=== PATIENT | female | born 1990 | race Caucasian/White ===

== ENCOUNTER 2017-06-10 13:08 | Emergency (ER) | payer SELFPAY ==
[2017-06-10 13:16] VITALS: RESP 18; BMI 26.4
[2017-06-10] MEDS ORDERED: Sodium Chloride 0.9% 1,000 ML IV ONE (13:45)
[2017-06-10] MEDS ORDERED: Morphine 4 MG/ML VIAL IV ONE (13:45)
[2017-06-10] MEDS ORDERED: Morphine 4 MG/ML VIAL ONE (14:00)
[2017-06-10] MEDS ORDERED: Sodium Chloride 0.9% 1,000 ML ONE (14:01)
[2017-06-10 14:10] LABS: BASO % 0.3 % (0.0-2.0); EOS % 0.3 % (0.0-4.0); HEMATOCRIT 41.4 % (34.0-47.0); LYMPH # 1.8 K/uL (1.0-4.3); LYMPH % 17.5 % (20.0-40.0); MEAN CORPUSCULAR HEMOGLOBIN 30.4 pg (27.0-31.0); MEAN CORPUSCULAR HGB CONC 34.2 g/dL (33.0-37.0); MEAN PLATELET VOLUME 8.6 fL (7.2-11.7); MONO # 0.5 K/uL (0.0-0.8); MONO % 5.3 % (0.0-10.0); RED CELL DISTRIBUTION WIDTH 13.3 % (11.5-14.5)
[2017-06-10 14:21] LABS: ALB/GLOB RATIO 1.3 (1.0-2.1); ALKALINE PHOSPHATASE 99 U/L (38-126); ALT/SGPT 29 U/L (9-52); AST/SGOT 23 U/L (14-36); BILIRUBIN,TOTAL 0.6 mg/dL (0.2-1.3); BLOOD UREA NITROGEN 10 mg/dL (7-17); CALCIUM 9.9 mg/dl (8.6-10.4); CARBON DIOXIDE 22 mmol/L (22-30); CHLORIDE 103 mmol/L (98-107); GFR AFRICAN-AMERICAN > 60; GLUCOSE,RANDOM 91 mg/dL (65-105); POTASSIUM 3.6 mmol/L (3.6-5.2); SODIUM 142 mmol/L (132-148); TOTAL PROTEIN 7.9 g/dL (6.3-8.3)
[2017-06-10 14:22] LABS: RBC URINE 205 /hpf (0-3); URINE BACTERIA RARE (<OCC); URINE BILIRUBIN NEGATIVE (NEGATIVE); URINE BLOOD 3+ (NEGATIVE); URINE COLOR Yellow (YELLOW); URINE GLUCOSE (UA) NORMAL (Normal); URINE KETONE TRACE mg/dL (NEGATIVE); URINE LEUKOCYTE ESTERASE 2+ Leu/uL (Negative); URINE PROTEIN 2+ mg/dL (NEGATIVE); URINE UROBILINOGEN NORMAL mg/dL (0.2-1.0); WBC URINE 95 /hpf (0-5)
--- NOTE | 2017-06-10 15:21 | C.PDOC ---
History Of Present Illness 26 year old female presents to the ED requesting elective D & C. She complains of vaginal spotting and lower pelvic cramping. Patient was seen at [facility] three days ago and diagnosed with demise. She is 4, para 2, M 1. Time Seen by Provider: 06/10/17 13:45 Chief Complaint (Nursing): Abdominal Pain History Per: Patient History/Exam Limitations: no limitations Onset/Duration Of Symptoms: Days (3 days ) Current Symptoms Are (Timing): Still Present Radiation Of Pain To:: None Quality Of Discomfort: Cramping Associated Symptoms: denies: Fever, Chills, Nausea, Vomiting, Diarrhea Recent travel outside of the [place]: No Additional History Per: Prior Records (seen at [facility] 3 days ago) Abnormal Vaginal Bleeding: Yes : 4 Para: 2 Miscarriage: 1 Past Medical History Reviewed: Historical Data, Nursing Documentation, Vital Signs Vital Signs: Last Vital Signs Temp 98.2 F 06/10/17 16:54 Pulse 80 06/10/17 16:54 Resp 18 06/10/17 16:54 BP 132/82 06/10/17 16:54 Pulse Ox 98 06/10/17 18:08 Family History: States: Unknown Family Hx - Social History Hx Alcohol Use: No Hx Substance Use: No - Immunization History Hx Tetanus Toxoid Vaccination: No Hx Influenza Vaccination: No Hx Pneumococcal Vaccination: No Review Of Systems Constitutional: Negative for: Fever, Chills Cardiovascular: Negative for: Chest Pain Respiratory: Negative for: Shortness of Breath Gastrointestinal: Negative for: Nausea, Vomiting Genitourinary: Positive for: Vaginal Bleeding (vaginal spotting ), Pelvic Pain ( lower pelvic cramping ). Negative for: Dysuria, Hematuria Physical Exam - Physical Exam Appears: Non-toxic, No Acute Distress Skin: Warm, Dry Head: Atraumatic Eye(s): bilateral: Normal Inspection Oral Mucosa: Moist Neck: Supple Chest: Symmetrical, No Deformity Cardiovascular: Rhythm Regular, No Murmur Respiratory: Normal Breath Sounds, No Rales, No Rhonchi, No Wheezing Gastrointestinal/Abdominal: Soft, Tenderness (mild supra), No Distention, No Guarding, No Rebound Pelvic: Other (Exam deferred ) ED Course And Treatment - Laboratory Results Result Diagrams: 06/10/17 14:03 06/10/17 14:03 Lab Interpretation: Normal (ua with blood from vag, A+, Quant HCG 6400 very low for dates) O2 Sat by Pulse Oximetry: 98 (room air ) Progress Note: Patient was given Morphine, Zofran, and IV fluids. Reevaluation Time: 16:04 Reassessment Condition: Improved - Physician Consult Information Time Consulting Physician Contacted: 15:15 Physician Contacted: Rach Cooper Outcome Of Conversation: Case was discussed with OB front office specialist, Dr. Jovanna Cooper. Patient does not meet the criteria for D & C. Medical Decision Making Medical Decision Making: demise as prior eval 2-3 days ago @ [facility] d/w Dr. Isidro Cooper- [employer] Administrative Office Assistant- ok to d/c home with Motrin/Tramadol PRN NO criteria for D&C at this time. Disposition Doctor Will See Patient In The: Office Counseled Patient/Family Regarding: Studies Performed, Diagnosis - Disposition [facility] Rach Cooper MD [Staff Provider] - Disposition: HOME/ ROUTINE Disposition Time: 16:05 Condition: GOOD Additional Instructions: continue Motrin/Advil/Ibuprofen 600 mg every 6 hours as needed for pelvic pain Tramadol 50 mg (narcotic pain reliever) for more severe pain- one tab every 4-6 hours Follow-up in our outpatient OBGYN Clinic in 1-2 weeks as needed There is NO indication for Dilation and Curretage at this time (D&C). today's Ultrasound results given Prescriptions: traMADol [Ultram] 50 mg PO Q6H PRN #20 tab PRN Reason: pain Instructions: Spontaneous Miscarriage (ED), Threatened Miscarriage (ED) Forms: [employer] (Slovenian) - Clinical Impression Clinical Impression: demise - Scribe Statement The provider has reviewed the documentation as recorded by the Scribe Iza Prado All medical record entries made by the Scribe were at my direction and personally dictated by me. I have reviewed the chart and agree that the record accurately reflects my personal performance of the history, physical exam, medical decision making, and the department course for this patient. I have also personally directed, reviewed, and agree with the discharge instructions and disposition.
--- NOTE | 2017-06-10 15:38 | US ---
PROCEDURE: OB Pelvic Ultrasound HISTORY: missed AB COMPARISON: None available. FINDINGS: UTERUS: Gestational sac: Adjacent small sac is identified within the endometrial cavity but no pole yolk sac is identified at this time. Heart rate: Not applicable bpm. age (Ultrasound estimated): Based on a mean sac diameter 3.6 cm, PE late is estimated 8 weeks 6 days which agrees with LMP derived gestational age of 7 weeks 2 days based on last menstrual period of 04/13/2017. Anahy-gestational hemorrhage: None definitively shown. Date of delivery (Ultrasound estimated) : Not applicable Uterus measures 11.6 x 5.4 x 6.7 cm. Normal in size and appearance. CERVIX: Long and closed. No cervical abnormality seen. RIGHT OVARY: Measures 4.1 x 1.9 x 2.8 cm. No mass lesion. Normal flow. LEFT OVARY: Measures 3.4 x 2.4 x 3.1 cm. No solid mass. Normal flow. FREE FLUID: None. OTHER FINDINGS: None. IMPRESSION: A gestational sac is identified within the endometrial cavity without pole or yolk sac, with a mean sac diameter suggested 8 weeks 6 days gestation. The pattern suggests failure of gestation. A single gestational sac with ectopic gestation is a possibility but is not favored. No ectopic is identified at either adnexal compartment or the cul-de-sac. Further clinical correlation is advised. Consider follow-up pelvic ultrasonography as well.
[2017-06-10 16:54] VITALS: BP 132/82; PULSE 80; TEMP 98.2
[2017-06-10 18:07] VITALS: O2SAT 98
== END 2017-06-10 16:54 | disposition home or self-care (01) ==
LOC: C.ER 13:08
DX: O02.1 Missed abortion (principal)
CPT/HCPCS: 76805; 76817; 80053; 81001; 84702; 84703; 85025; 86850; 86900; 96361; 96374; 96375; 99285; J2270; J2405; J7040

== ENCOUNTER 2017-06-30 13:06 | Day surgery (SDC) | payer OTHER ==
[2017-06-30 13:07] VITALS: BMI 26.4
--- NOTE | 2017-06-30 13:45 | C.PDOC ---
History Of Present Illness Patient is a 26 y/o F presenting with vaginal discharge. Patient presented to to ED on 06/10/17 requesting elective D&C after was diagnosed with demise at outside hospital. She had ultrasound at that time consistent with demise and was instructed to follow-up with OB as outpatient. Patient reports that she did not follow-up. She reports that she now was vaginal discharge with foul odor. Time Seen by Provider: 06/30/17 13:24 Chief Complaint (Nursing): Abdominal Pain Past Medical History Vital Signs: Last Vital Signs Temp 97.9 F 06/30/17 13:31 Pulse 100 H 06/30/17 13:31 Resp 18 06/30/17 13:31 BP 109/75 06/30/17 13:31 Pulse Ox 96 06/30/17 16:01 Family History: States: Unknown Family Hx - Social History Hx Alcohol Use: No Hx Substance Use: No - Immunization History Hx Tetanus Toxoid Vaccination: No Hx Influenza Vaccination: No Hx Pneumococcal Vaccination: No Review Of Systems Constitutional: Negative for: Fever Cardiovascular: Negative for: Chest Pain, Palpitations, Edema, Light Headedness Respiratory: Negative for: Cough, Shortness of Breath, SOB with Excertion, Wheezing Gastrointestinal: Negative for: Nausea, Vomiting, Abdominal Pain, Diarrhea, Constipation Genitourinary: Positive for: Vaginal Discharge, Vaginal Bleeding. Negative for : Dysuria, Frequency Musculoskeletal: Negative for: Neck Pain Neurological: Negative for: Weakness, Numbness Physical Exam - Physical Exam Appears: Well, Non-toxic, No Acute Distress Skin: Normal Color, Warm, Dry Head: Atraumatic, Normacephalic Eye(s): bilateral: Normal Inspection, PERRL, EOMI Neck: Supple Cardiovascular: Rhythm Regular Respiratory: Normal Breath Sounds, No Rales, No Rhonchi Gastrointestinal/Abdominal: Soft, No Tenderness, No Mass Back: Normal Inspection, No CVA Tenderness Pelvic: No Cervical Motion Tenderness, No Cervix Open, No Adnexal Tenderness, Other (external os closed. Blood in vault. +odor) Extremity: Normal ROM Neurological/Psych: Oriented x3 ED Course And Treatment - Laboratory Results Result Diagrams: 06/30/17 14:12 06/30/17 14:12 O2 Sat by Pulse Oximetry: 96 Medical Decision Making Medical Decision Making: Will get ultrasound labs and reeval U/s shows No viable intrauterine gestation is identified and there is no defined gestational sac in the interval either at this time. A thickened endometrial is hyperemic and measures up to 16.8 mm suspicious for retained products of conception. Infection is also not excluded. There likely hemorrhagic products in the endocervical canal versus additional potential retained products of conception. Clinical correlation is further advised. No suspicious adnexal findings bilaterally. Labs reviewed and blood type A+. BHC. Elevated wbc. Spoke to Dr. Ruelas who will evaluate 5:03PM Ob evaluated and bedside and consented patient for D&C in OR tonight. Disposition - Disposition Disposition: HOSPITALIZED Disposition Time: 17:03 Condition: FAIR Forms: [facility] (Maori) - Clinical Impression Clinical Impression: Retained products of conception, Incomplete
[2017-06-30] MEDS ORDERED: Sodium Chloride 0.9% 1,000 ML IV ONE ×3 (13:57→18:43)
[2017-06-30] MEDS ORDERED: Sodium Chloride 0.9% 1,000 ML ONE ×3 (14:02→17:39)
[2017-06-30 14:19] LABS: BASO # 0.1 K/uL (0.0-0.2); BASO % 0.5 % (0.0-2.0); EOS # 0.1 K/uL (0.0-0.7); EOS % 0.3 % (0.0-4.0); HEMATOCRIT 45.6 % (34.0-47.0); LYMPH # 1.7 K/uL (1.0-4.3); LYMPH % 11.3 % (20.0-40.0); MEAN CELL VOLUME 90.4 fL (81.0-99.0); MEAN CORPUSCULAR HEMOGLOBIN 30.3 pg (27.0-31.0); MEAN CORPUSCULAR HGB CONC 33.5 g/dL (33.0-37.0); MEAN PLATELET VOLUME 9.3 fL (7.2-11.7); MONO # 0.6 K/uL (0.0-0.8); MONO % 3.8 % (0.0-10.0); RED CELL DISTRIBUTION WIDTH 13.3 % (11.5-14.5); WHITE BLOOD COUNT 15.4 K/uL (4.8-10.8)
[2017-06-30 14:30] LABS: CHLORIDE 101 mmol/L (98-107); SODIUM 143 mmol/L (132-148)
[2017-06-30 14:32] LABS: AST/SGOT 27 U/L (14-36); BILIRUBIN,TOTAL 0.7 mg/dL (0.2-1.3); CARBON DIOXIDE 23 mmol/L (22-30); GFR AFRICAN-AMERICAN > 60
[2017-06-30 14:33] LABS: ALB/GLOB RATIO 1.3 (1.0-2.1); ALKALINE PHOSPHATASE 81 U/L (38-126); ALT/SGPT 23 U/L (9-52); BLOOD UREA NITROGEN 14 mg/dL (7-17); GLUCOSE,RANDOM 105 mg/dL (65-105); TOTAL PROTEIN 8.3 g/dL (6.3-8.3)
--- NOTE | 2017-06-30 15:46 | US ---
HISTORY: , vaginal bleeding COMPARISON: As below. TECHNIQUE: Transvaginal ultrasound of pelvis performed for evaluation of spontaneous vaginal bleeding in this patient. Comparison is made to the prior transvaginal pelvic ultrasound examination 06/10/2017. FINDINGS: UTERUS: Measures 9.7 x 4.6 x 5.8 cm. Prior gestational sac is now not identified with fluid and debris probably reflecting hemorrhage in various stages area of degradation within the upper mid and lower endocervical canal. No myometrial lesion is identified. ENDOMETRIUM: Measures 16.8 mm in diameter. The endometrium is inhomogeneous in overall echotexture and appears mildly hyperemic on color Doppler imaging. This pattern is suspicious for retained products of conception given the thickness of the endometrium. CERVIX: Included in uterus section above. RIGHT OVARY: Measures 2.7 x 1.7 x 2.8 cm. No solid mass. Normal flow. LEFT OVARY: Measures 2.1 x 1.8 x 2.1 cm. No solid mass. Normal flow. FREE FLUID: No significant free fluid noted. OTHER FINDINGS: None. IMPRESSION: No viable intrauterine gestation is identified and there is no defined gestational sac in the interval either at this time. A thickened endometrial is hyperemic and measures up to 16.8 mm suspicious for retained products of conception. Infection is also not excluded. There likely hemorrhagic products in the endocervical canal versus additional potential retained products of conception. Clinical correlation is further advised. No suspicious adnexal findings bilaterally.
--- NOTE | 2017-06-30 16:23 | CP.PCM.HP ---
History of Present Illness - History of Present Illness History of Present Illness: 26 yr lmp 03/18/17 her for c/o vaginal bleeding on/off with cramping for 2 months. pt states sh had fever few days ced .no fever today.last vit to er 06/10. obhx 1 c/s, 1 x pmh denies med pnv all nkda psh denies soch denies abd soft,non tender ext no edema,no calf ten sse closed, ut anteverted no adenxal mass sono retained products . end 1.6 cm Present on Admission - Present on Admission Any Indicators Present on Admission: No History of DVT/PE: No History of Uncontrolled Diabetes: No Urinary Catheter: No Decubitus Ulcer Present: No Review of Systems - Menstruation Menstruation: Abnormal Vaginal Bleeding Past Patient History - Infectious Disease Hx of Infectious Diseases: None - Past Social History Smoking Status: Never Smoked - PSYCHIATRIC Hx Substance Use: No - SURGICAL HISTORY Hx Surgeries: Yes Hx Section: Yes (x2) - ANESTHESIA Hx Anesthesia: Yes Hx Anesthesia Reactions: No Meds Allergies/Adverse Reactions: Allergies Allergy/AdvReac Type Severity Reaction Status Date / Time No Known Allergies Allergy Verified 06/30/17 13:33 Physical Exam - Exam External exam: NORMAL EXTERNAL EXAM Speculum exam: Vaginal Bleeding Bimanual exam: NORMAL BIMANUAL EXAM Results - Vital Signs Recent Vital Signs: Last Vital Signs Temp 97.9 F 06/30/17 13:31 Pulse 100 H 06/30/17 13:31 Resp 18 06/30/17 13:31 BP 109/75 06/30/17 13:31 Pulse Ox 96 06/30/17 16:01 - Labs Result Diagrams: 06/30/17 14:12 06/30/17 14:12 Labs: Laboratory Results - last 24 hr 06/30/17 06/30/17 06/30/17 14:12 14:12 14:12 WBC 15.4 H D RBC 5.04 Hgb 15.3 Hct 45.6 MCV 90.4 MCH 30.3 MCHC 33.5 RDW 13.3 Plt Count 244 MPV 9.3 Neut % (Auto) 84.1 H Lymph % (Auto) 11.3 L [place] % (Auto) 3.8 Eos % (Auto) 0.3 Baso % (Auto) 0.5 Neut # 12.9 H Lymph # 1.7 [place] # 0.6 Eos # 0.1 Baso # 0.1 PT INR APTT Sodium 143 Potassium 4.0 Chloride 101 Carbon Dioxide 23 Anion Gap 23 H BUN 14 Creatinine 0.5 L Est GFR ( Amer) > 60 Est GFR (Non-Af Amer) > 60 Random Glucose 105 Calcium 10.0 Total Bilirubin 0.7 AST 27 ALT 23 Alkaline Phosphatase 81 Total Protein 8.3 Albumin 4.7 Globulin 3.7 Albumin/Globulin Ratio 1.3 Beta HCG, Quant 117.75 Blood Type A POSITIVE Antibody Screen Negative 06/30/17 14:12 WBC RBC Hgb Hct MCV MCH MCHC RDW Plt Count MPV Neut % (Auto) Lymph % (Auto) [place] % (Auto) Eos % (Auto) Baso % (Auto) Neut # Lymph # [place] # Eos # Baso # PT 10.7 INR 1.0 APTT 31 Sodium Potassium Chloride Carbon Dioxide Anion Gap BUN Creatinine Est GFR ( Amer) Est GFR (Non-Af Amer) Random Glucose Calcium Total Bilirubin AST ALT Alkaline Phosphatase Total Protein Albumin Globulin Albumin/Globulin Ratio Beta HCG, Quant Blood Type Antibody Screen Assessment & Plan - Assessment and Plan (Free Text) Assessment: 26 yr with retained products/abdominal pain Plan: plan admit for suction d&c npo/ivf ancef labs OR aware informed consent. r/a/b discussed - Date & Time Date: 06/30/17 Time: 17:00
[2017-06-30] MEDS ORDERED: Sodium Chloride 0.9% 1,000 ML IV SCH (17:00)
[2017-06-30] MEDS ORDERED: Sodium Chloride 0.9% 0 ML IV ONE ×3 (17:02)
[2017-06-30] MEDS ORDERED: ceFAZolin 1 gm FROZEN Premix 1 GM/50 ML ML IVPB ONE (17:40)
[2017-06-30] MEDS ORDERED: Lactated Ringer's 1,000 ML IV ONE (18:25)
[2017-06-30] MEDS ORDERED: ceFAZolin 1 gm FROZEN Premix 0 GM/0 ML ML IVPB ONE (18:28)
[2017-06-30] MEDS ORDERED: Propofol 10 mg/ml Inj (20 ML) ONE (18:28)
[2017-06-30] MEDS ORDERED: Midazolam 2 MG/2 ML VIAL ONE (18:29)
[2017-06-30] MEDS ORDERED: Oxytocin 10 Units/ml Inj ONE (18:37)
[2017-06-30] MEDS ORDERED: HYDROmorphone 0.5 mg/0.5 ml ISec IVP PRN (18:40)
--- NOTE | 2017-06-30 18:43 | PCM.SURG1 ---
Surgeon's Initial Post Op Note - Surgeon's Notes Surgeon: dr masterson International Marketing Manager: none Type of Anesthesia: IV Sedation Anesthesia Administered By: dr estrella Pre-Operative Diagnosis: 26 yr with retained products Operative Findings: see the op reort Post-Operative Diagnosis: same Operation Performed: suction d &c Specimen/Specimens Removed: poc Estimated Blood Loss: EBL {In ML}: 20 Blood Products Given: N/A Drains Used: No Drains Post-Op Condition: Good Date of Surgery/Procedure: 06/30/17 Time of Surgery/Procedure: 18:00
[2017-06-30 19:33] VITALS: O2SAT 96
[2017-06-30 19:52] VITALS: BP 116/81; PULSE 92; RESP 19
[2017-06-30 21:12] VITALS: TEMP 99
--- NOTE | 2017-07-01 04:05 | OP ---
PREOPERATIVE DIAGNOSIS: A 26 years old 3, para 2, with retained product. POSTOPERATIVE DIAGNOSIS: A 26 years old 3, para 2, with retained product. SURGEON: Lamont Ruelas MD GEAR TOOTH GRINDING MACHINE OPERATOR: None. ANESTHESIA: General anesthesia. ANESTHESIOLOGIST: Dr. Douglas. COMPLICATIONS: None. PROCEDURE PERFORMED: Suction D and C. DESCRIPTION OF PROCEDURE: After informed consent was obtained, the patient was brought to the operating room, placed on the table, general anesthesia was given. Examination found the uterus to be 8-week size. No pelvic or adnexal masses. The cervix was opened. Gentle dilatation of the cervix was done. Anterior lip of the cervix was grasped with a tenaculum. For suction, a 6-Iraqi catheter was used, then the 7-Iraqi catheter was used and a sharp curettage was done. Then, the suction was used again. Normal products were found. Pitocin was given, there was minimal amount of bleeding. Tenaculum was taken out. The patient tolerated the procedure well. Lap, sponge, and instrument counts were correct x2. Lamont Ruelas MD
== END 2017-06-30 20:30 | disposition home or self-care (01) ==
LOC: C.ER 13:06 → C.SDS 17:36
PROVIDERS: ATTEND Obstetrics & Gynecology
DX: O03.4 Incomplete spontaneous abortion without complication (principal)
CPT/HCPCS: 59812; 76830; 80053; 84702; 85025; 85610; 85730; 86850; 86900; 88305; 96361; 96365; 96375; 99285; J0690; J1170; J1885; J2250; J2405; J2590; J2704; J3010; J7040; J7120

== ENCOUNTER 2018-07-05 16:10 | Emergency (ER) | payer MEDICAID, OTHER ==
--- NOTE | 2018-07-05 16:39 | OBHP ---
Datetime: 07/05/2018 16:33 IP Adm Impression: , intrauterine Admit Comment, IP Provider: at 31+weks came with c/o abdominal discomfort, no ctxs, vb , lof+fm obhx 2 x c/s pmh de med pnv all nkda psh de soch de ve close a/p at 31+weks abdominal pain ua cont tom and efm cont close obse Pelvic Type - PN: Adequate Extremities - PN: Normal Abdomen - PN: Normal Back - PN: Normal Breast - PN: Normal Lungs - PN: Normal Heart - PN: Normal Thyroid - PN: Normal Neurologic - PN: Normal HEENT - PN: Normal General - PN: Normal FHR - Baseline A Provider: 130 Contraction Comments Provider: none EGA AdmitDate IP: 31.1 Vital Signs Provider: Reviewed; Within Normal Limits IP Chief Complaint: Maternal discomfort NICHD Variability Prov Fetus A: Moderate 6-25bpm NICHD Decel Fetus A IP Provider: None Dilatation, Provider: 0 Effacement, Provider: 0 Station, Provider: -4 Genitourinary Exam: Normal DTRs - PN: Normal
[2018-07-05 16:57] VITALS: BMI 27.4
[2018-07-05 17:22] LABS: SQUAMOUS EPITHIAL 2 /hpf (0-5); URINE BACTERIA OCC (<OCC); URINE BILIRUBIN NEGATIVE (NEGATIVE); URINE BLOOD NEGATIVE (NEGATIVE); URINE CLARITY Clear (Clear); URINE COLOR Yellow (YELLOW); URINE GLUCOSE (UA) NORMAL (Normal); URINE LEUKOCYTE ESTERASE 1+ Leu/uL (Negative); URINE PROTEIN NEGATIVE (NEGATIVE); URINE UROBILINOGEN NORMAL mg/dL (0.2-1.0)
--- NOTE | 2018-07-05 17:46 | OBDCSUM ---
Datetime: 07/05/2018 17:44 Discharged to, Provider: Home Follow up at, Provider: monday Disch Instr Diet: Regular Follow up in weeks, Provider: clinic Discharge Comment, Provider: plan dc home macrobid cnt pnv f/u Discharge Diagnosis Prov Other: 31week uti nst
--- NOTE | 2018-07-05 17:46 | OBHP ---
Datetime: 07/05/2018 16:33 Admit Comment, IP Provider: at 31+weks came with c/o abdominal discomfort, no ctxs, vb , lof+fm obhx 2 x c/s pmh de med pnv all nkda psh de soch de ve close a/p at 31+weks abdominal pain ua cont tom and efm cont close obse ua 1 +le, 10 wbc plan dc home macrobid cnt pnv f/u EGA AdmitDate IP: .
[2018-07-05 22:42] VITALS: TEMP 98.8
== END 2018-07-05 18:15 | disposition home or self-care (01) ==
LOC: C.EROB 16:28
DX: O26.893 Other specified pregnancy related conditions, third trimester (principal); R10.9 Unspecified abdominal pain; Z3A.33 33 weeks gestation of pregnancy